=== PATIENT | female | born 1990 | race Asian ===

== ENCOUNTER 2022-01-18 16:09 | Emergency (ER) | payer BC ==
[~2022-01-18] VITALS: Ht 157.5 cm; Wt 77.1 kg
[2022-01-18 16:13] VITALS: BP_SYST 147
[2022-01-18] MEDS ORDERED: DIPH-TET-PERTUS Vaccine 0.5 ML VIAL (ADACEL) I.M. ONE (17:30)
[2022-01-18] MEDS ORDERED: BACITRACIN 1 GM OINT TP ONE ×3 (17:30→17:36)
--- NOTE | 2022-01-18 17:30 | NUR ---
Pt with BS for MSE.
[2022-01-18] MEDS ORDERED: HYDR-3917 PO (17:36)
[2022-01-18] MEDS ORDERED: AMOX-423 PO ×2 (17:36→17:38)
--- NOTE | 2022-01-18 17:40 | NUR ---
Pt presents to the ER BIB family CC Skin tears from animal bite. Pt c/o Pain scale 9/10. Pt is [id number] Denies NV.
[2022-01-18] MEDS ORDERED: AMOXICILLIN/CLAVULANATE POTASSIUM 500 MG TABLET PO ONE (18:00)
--- NOTE | 2022-01-18 18:00 | NUR ---
GERARDO Beaulieu irrigated wound with Normal saline, adherent dressing, bacitracin and Rolled gauze for dressing. Cap refill<3 sec.
--- NOTE | 2022-01-18 18:20 | NUR ---
Pt tolerating pain with meditation and refuses narcotic for painscale 02/14. Pt given immunization of DTap and ABX Augmentin with no adverse reactions. Pt is sitting in bed conversing with calm tone.
--- NOTE | 2022-01-18 19:35 | NUR ---
Patient given written and verbal discharge instructions and verbalizes understanding. ER MD discussed with patient the results and treatment provided. Patient in stable condition. Pt will take Tylenol OTC in home. Opportunity for questions provided and answered. Medication side effect fact sheet provided.
[2022-01-18 19:37] VITALS: BP_SYST 128
== END 2022-01-18 19:37 | disposition home or self-care (01) ==
LOC: SED 16:09
DX: S51.832A Puncture wound without foreign body of left forearm, initial encounter (principal); S51.831A Puncture wound without foreign body of right forearm, initial encounter; W54.0XXA Bitten by dog, initial encounter; Y93.89 Activity, other specified; Y92.89 Other specified places as the place of occurrence of the external cause; Y99.8 Other external cause status
CPT/HCPCS: 73140-TC; 90715; 99283

== ENCOUNTER 2024-04-07 10:05 | Emergency (ER) | payer BC ==
[~2024-04-07] VITALS: Ht 157.5 cm; Wt 77.1 kg
[~2024-04-07 10:05] MED LIST: AMOX-423 PO; HYDR-3917 PO
[2024-04-07 10:22] VITALS: BP_SYST 137; PULSE 80; RESP 18; TEMP 98.1; O2SAT 100
[2024-04-07 10:56] LABS: BASOPHILS % (AUTO) 0.3 % (0.0-2.0); EOSINOPHILS % (AUTO) 0.5 % (0.0-4.0); HEMATOCRIT 44.8 % (36-48); HEMOGLOBIN 15.3 g/dL (12.0-16.0); LYMPHOCYTES # (AUTO) 1.1 K/uL (1.0-5.5); LYMPHOCYTES % (AUTO) 14.3 % (20.5-51.5); MEAN CORPUSCULAR HEMOGLOBIN 31 pg (27-31); MEAN CORPUSCULAR HGB CONC 34 % (32-36); MEAN CORPUSCULAR VOLUME 89 fL (79.0-98.0); MONOCYTES # (AUTO) 0.6 K/uL (0.0-1.0); MONOCYTES % (AUTO) 7.9 % (1.7-9.3); NEUTROPHILS # (AUTO) 6.1 K/uL (1.8-7.7); PLATELET COUNT (AUTO) 248 K/uL (130-430); RED BLOOD CELL COUNT(AUTO) 5.02 MIL/uL (4.2-6.2); RED CELL DISTRIBUTION WIDTH 12.1 % (9.0-15.0); WHITE BLOOD COUNT (AUTO) 7.9 K/uL (4.8-10.8)
[2024-04-07 11:17] LABS: INR 0.9 (0.8-1.2); PROTHROMBIN TIME 9.9 SECS (9.5-12.5); SERUM HCG (QUALITATIVE) NEGATIVE (NEGATIVE)
[2024-04-07 11:25] LABS: ALBUMIN 4.4 g/dL (3.4-4.8); CALCIUM 9.6 mg/dL (8.4-11.0); CREATININE 0.84 mg/dL (0.55-1.30); POTASSIUM 4.5 mmol/L (3.5-5.1); TOTAL BILIRUBIN 0.6 mg/dL (0.0-1.0); TOTAL PROTEIN, SERUM 8.2 g/dL (6.4-8.3)
[2024-04-07 11:29] LABS: BILIRUBIN,DIRECT 0.1 mg/dL (0.0-0.3)
[2024-04-07 11:40] LABS: BILIRUBIN,URINE NEGATIVE (NEGATIVE); BLOOD, URINE NEGATIVE (NEGATIVE); CLARITY/URINE CLEAR (CLEAR); COLOR,URINE YELLOW (YELLOW); GLUCOSE,URINE NEGATIVE (NEGATIVE); KETONES,URINE NEGATIVE (NEGATIVE); LEUKOCYTE ESTERASE ,URINE NEGATIVE (NEGATIVE); NITRITE, URINE NEGATIVE (NEGATIVE); PROTEIN URINE NEGATIVE (NEGATIVE); UROBILINOGEN,URINE 0.2 (0.2-1.0)
[2024-04-07 12:38] VITALS: BP_SYST 118; PULSE 80; RESP 18; TEMP 98.1; O2SAT 100
== END 2024-04-07 12:38 | disposition home or self-care (01) ==
LOC: SED 10:05
DX: K62.5 Hemorrhage of anus and rectum (principal); R10.84 Generalized abdominal pain; R11.0 Nausea; Z88.2 Allergy status to sulfonamides; Z88.1 Allergy status to other antibiotic agents; Z79.899 Other long term (current) drug therapy; Z79.2 Long term (current) use of antibiotics
CPT/HCPCS: 36415; 80048; 80076; 81001; 81003; 82150; 83605; 83690; 84703; 85025; 85610; 85730; 99284